=== PATIENT | female | born 1940 | race Caucasian/White ===

== ENCOUNTER 2018-09-05 09:17 | Day surgery (SDC) | payer MEDICARE, OTHER ==
[~2018-09-05] VITALS: Ht 149.9 cm; Wt 58.6 kg
[~2018-09-05 09:17] MED LIST: 0.9% SODIUM CHLORIDE 10 ML SYRINGE IVP PRN; METOPROLOL TARTRATE 50 MG TABLET PO ONE
[2018-09-05] MEDS ORDERED: DULO20CA30 PO (10:17)
[2018-09-05] MEDS ORDERED: ASPI81 PO (10:17)
[2018-09-05] MEDS ORDERED: CALC-877 PO (10:17)
[2018-09-05 10:29] LABS: ANION GAP 7 mmol/L (8-16); CALCIUM, TOTAL 9.8 mg/dL (8.8-10.5); CARBON DIOXIDE 28 mmol/L (22-29); CHLORIDE 106 mmol/L (98-107); CREATININE 0.88 mg/dL (0.60-1.30); GLOMERULAR FILTR. RATE CALC > 60 mL/min (>60); GLUCOSE,RANDOM 85 mg/dL (70-110); SODIUM SERUM 141 mmol/L (136-145); UREA NITROGEN, BLOOD 13 mg/dL (7-18)
[2018-09-05] MEDS ORDERED: SODIUM CHLORIDE 0.9% 100 ML ONE (10:44)
[2018-09-05] MEDS ORDERED: IOVERSOL 350 MG/ML 150 ML VIAL ONE (10:44)
[2018-09-05] MEDS ORDERED: NITROGLYCERIN 400 MCG/SUBLINGUAL SPRAY 4.9 GM BOTTLE SL ONE ×2 (11:00→11:25)
[2018-09-05] MEDS ORDERED: METOPROLOL TARTRATE 5 MG/5 ML VIAL ONE (11:00)
== END 2018-09-05 12:10 | disposition home or self-care (01) ==
LOC: SURGERY 09:17 → EDSTATUS 11:00 → SURGERY 12:10
PROVIDERS: ATTEND Internal Medicine Cardiovascular Disease
DX: I25.10 Atherosclerotic heart disease of native coronary artery without angina pectoris (principal); J84.10 Pulmonary fibrosis, unspecified; I50.9 Heart failure, unspecified; Z79.82 Long term (current) use of aspirin
CPT/HCPCS: 36415; 75574; 80048; 93005; J7050; Q9967; J3490